=== PATIENT | female | born 1950 | race Native Hawaiian/Other Pacific Islander ===

== ENCOUNTER 2016-12-17 13:54 | Outpatient (CLI) | payer OTHER ==
[~2016-12-17 13:54] MED LIST: AMLO5TAB PO; BAYER CHEWABLE81 MG PO; CLOP75TA2 PO; HYDR25TA60 PO; LIBRAX1 CAP PO; LIPITOR40 MG PO; LISI20TA11 PO; METOPROLOL25 M1 PO; TRIA75TA61 PO; XANAX XR0.5 MG PO
== END 2016-12-17 20:02 | disposition home or self-care (01) ==
LOC: LABW 13:54
PROVIDERS: Internal Medicine Cardiovascular Disease
DX: E78.4 Other hyperlipidemia (principal); Z09 Encounter for follow-up examination after completed treatment for conditions other than malignant neoplasm
CPT/HCPCS: 36415; 80061; 80076

== ENCOUNTER 2017-03-15 10:46 | Outpatient (CLI) | payer OTHER | END 2017-03-15 19:32 | disposition home or self-care (01) | LOC: LABW 10:46 | PROVIDERS: Internal Medicine Cardiovascular Disease | DX: E78.4 Other hyperlipidemia (principal); Z09 Encounter for follow-up examination after completed treatment for conditions other than malignant neoplasm | CPT/HCPCS: 36415; 80061; 80076 ==

== ENCOUNTER 2017-07-14 13:32 | Outpatient (CLI) | payer OTHER | END 2017-07-14 19:11 | disposition home or self-care (01) | LOC: RAD 13:32 | DX: Z13.820 Encounter for screening for osteoporosis (principal); Z78.0 Asymptomatic menopausal state ==

== ENCOUNTER 2018-03-24 15:08 | Outpatient (CLI) | payer OTHER ==
[2018-03-25] MEDS ORDERED: AMLO2.5T PO (18:35)
== END 2018-03-24 19:41 | disposition home or self-care (01) ==
LOC: INF 15:08
DX: E86.0 Dehydration (principal)
CPT/HCPCS: 96360; 96361

== ENCOUNTER 2018-03-27 16:08 | Outpatient (CLI) | payer OTHER ==
[~2018-03-27 16:08] MED LIST changes: +AMLO2.5T PO
[2018-03-27 16:35] LABS: PLATELET COUNT 111 K/uL (152-353)
[2018-03-27 16:46] LABS: POTASSIUM 3.7 mmol/L (3.6-5.2)
== END 2018-03-27 21:45 | disposition home or self-care (01) ==
LOC: INF 16:08
PROVIDERS: Family Medicine
DX: L03.811 Cellulitis of head [any part, except face] (principal); B95.5 Unspecified streptococcus as the cause of diseases classified elsewhere
CPT/HCPCS: 80053; 83605; 83880; 85027; 96365; J3370

== ENCOUNTER 2018-03-28 13:05 | Outpatient (CLI) | payer OTHER | END 2018-03-28 22:06 | disposition home or self-care (01) | LOC: US 13:05 | DX: B95.5 Unspecified streptococcus as the cause of diseases classified elsewhere (principal); L03.115 Cellulitis of right lower limb ==

== ENCOUNTER 2018-04-10 11:16 | Outpatient (CLI) | payer OTHER | END 2018-04-10 19:14 | disposition home or self-care (01) | LOC: LABW 11:16 | PROVIDERS: Internal Medicine Cardiovascular Disease | DX: E78.5 Hyperlipidemia, unspecified (principal); I25.119 Atherosclerotic heart disease of native coronary artery with unspecified angina pectoris; Z09 Encounter for follow-up examination after completed treatment for conditions other than malignant neoplasm | CPT/HCPCS: 36415; 80061; 80076 ==

== ENCOUNTER 2018-06-05 13:43 | Outpatient (CLI) | payer OTHER | END 2018-06-05 20:03 | disposition home or self-care (01) | LOC: RAD 13:43 | DX: J45.909 Unspecified asthma, uncomplicated (principal) ==

== ENCOUNTER 2019-02-14 14:31 | Outpatient (CLI) | payer OTHER | END 2019-02-14 23:31 | disposition home or self-care (01) | LOC: RAD 14:31 | DX: M54.2 Cervicalgia (principal) ==

== ENCOUNTER 2019-02-16 11:38 | Outpatient (CLI) | payer OTHER ==
[2019-02-16 12:04] LABS: PLATELET COUNT 143 K/uL (152-353)
[2019-02-16 12:28] LABS: POTASSIUM 4.6 mmol/L (3.6-5.2)
== END 2019-02-16 23:40 | disposition home or self-care (01) ==
LOC: LABW 11:38
PROVIDERS: Internal Medicine
DX: I10 Essential (primary) hypertension (principal); R82.998 Other abnormal findings in urine
CPT/HCPCS: 36415; 80053; 80061; 81000; 82306; 84439; 84443; 85027; 87077; 87086; 87088; 87186

== ENCOUNTER 2019-06-02 11:10 | Outpatient (CLI) | payer OTHER | END 2019-06-02 19:52 | disposition home or self-care (01) | LOC: LABW 11:10 | PROVIDERS: Internal Medicine Cardiovascular Disease | DX: E78.49 Other hyperlipidemia (principal); Z09 Encounter for follow-up examination after completed treatment for conditions other than malignant neoplasm | CPT/HCPCS: 36415; 80061; 80076 ==

== ENCOUNTER 2019-07-24 12:47 | Outpatient (CLI) | payer OTHER | END 2019-07-24 20:12 | disposition home or self-care (01) | LOC: RAD 12:47 | DX: Z13.820 Encounter for screening for osteoporosis (principal); N95.8 Other specified menopausal and perimenopausal disorders ==

== ENCOUNTER 2019-10-29 12:22 | Outpatient (CLI) | payer OTHER | END 2019-10-29 20:49 | disposition home or self-care (01) | LOC: RAD 12:22 | DX: M25.512 Pain in left shoulder (principal) ==

== ENCOUNTER 2019-11-26 15:09 | Emergency (ER) | payer OTHER ==
[~2019-11-26] VITALS: Ht 165.1 cm; Wt 76.7 kg
[2019-11-26 15:50] LABS: PLATELET COUNT 134 K/uL (152-353)
[2019-11-26 16:05] LABS: POTASSIUM 3.9 mmol/L (3.6-5.2); SODIUM 136 mmol/L (136-145)
[2019-11-26 20:04] VITALS: BP 201/90; TEMP 99
== END 2019-11-26 20:07 | disposition short-term general hospital (02) ==
LOC: ED 15:09
PROVIDERS: Emergency Medicine
DX: R07.89 Other chest pain (principal); R79.89 Other specified abnormal findings of blood chemistry
CPT/HCPCS: 80053; 82550; 82553; 84484; 85027; 85379; 93005; 99284

== ENCOUNTER 2019-12-07 10:29 | Outpatient (CLI) | payer OTHER, MEDICARE | END 2019-12-07 21:47 | disposition home or self-care (01) | LOC: US 10:29 | PROVIDERS: Internal Medicine | DX: K76.89 Other specified diseases of liver (principal); N18.3 Chronic kidney disease, stage 3 (moderate) | CPT/HCPCS: 36415; 80053 ==

== ENCOUNTER 2020-11-04 12:31 | Outpatient (CLI) | payer OTHER | END 2020-11-04 21:18 | disposition home or self-care (01) | LOC: LAB 12:31 | PROVIDERS: ATTEND Internal Medicine | DX: N39.0 Urinary tract infection, site not specified (principal) | CPT/HCPCS: 81002; 87077; 87086; 87088; 87186 ==

== ENCOUNTER 2021-09-22 16:54 | Outpatient (CLI) | payer OTHER, MEDICARE | END 2021-09-22 19:03 | disposition home or self-care (01) | LOC: LAB 16:54 | PROVIDERS: ATTEND Internal Medicine | DX: N39.0 Urinary tract infection, site not specified (principal) | CPT/HCPCS: 87077; 87086; 87088; 87186 ==

== ENCOUNTER 2022-08-24 13:21 | Outpatient (CLI) | payer OTHER, MEDICARE | END 2022-08-24 19:19 | disposition home or self-care (01) | LOC: LAB 13:21 | PROVIDERS: ATTEND Internal Medicine | DX: N39.0 Urinary tract infection, site not specified (principal) | CPT/HCPCS: 87077; 87086; 87088; 87186 ==

== ENCOUNTER 2023-01-14 12:08 | Outpatient (CLI) | payer OTHER, MEDICARE | END 2023-01-14 19:25 | disposition home or self-care (01) | LOC: RAD 12:08 | PROVIDERS: ATTEND Physician Assistant | DX: M54.2 Cervicalgia (principal); M25.512 Pain in left shoulder ==